=== PATIENT | female | born 2000 | race Hispanic/Latino ===

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

== ENCOUNTER 2023-12-29 08:00 | Emergency (ER) | payer OTHER ==
--- OUTSIDE RECORDS SUMMARY | 2023-12-29 08:03 | XMS REPORT | Continuity of Care Document ---
Author Name Unknown Address [address] [place] [address] [facility] Address [address] [place] [address] Care Team Providers Care Supply Assistant Name Role Phone PCP, PATIENT DOES NOT HAVE A Primary Care Physic hebert Harper Attending Clinician Kimberly Jacobsen MD Attending Clinician Unknown, Attending Attending Clinician KIMBERLY Park Attending Clinician Unavailable Doctor Unassigned, [place] Attending Clinician U navailable Meredith Admitting Clinician Vinnie vickers Payers Payer Name Policy Type Policy Number Effective Date Expirati on Date Source [facility] [id number] Problems Condition Name Condition Details Condition Category Status Onset Date Resolution Date Last Treatment Date Treating Clinician Comments Source No known active problems No known active problems Disease [facility] Allergies, Adverse Reactions, Alerts Allergy Name Allergy Type Status Severity Reaction(s) Onset Date Inactive Date Treating Clinician Comments Source NO KNOWN ALLERGIE S Drug Class Active [facility] Social History Social Habit Start Date Stop Date Quantity Comments Source Exposure to SARS-CoV-2 (event) 2022-05-25 00:00:00 2022-06-04 18:06:00 Not sure [facility] Sex Assigned At 2000 00:00:00 2000 00:00:00 [facility] Smoking Status Start Date Stop Date Source Tobacco smoking consumption unknown [facility] Medications Ordered Medication Name Filled Medication Name Start Date Stop Date Current Medication? Ordering Clinician Indication Dosage Frequency Signature (SIG) Comments Components Source bromphenira mine-pseudo ephedrine-D M (BROMFED DM) 2-30-10 mg/5 mL syrup 2021-06 00:00: 00 Yes [id number] 5mL Take 5 mL by mouth 4 (four) times daily as needed for Congestion /Allergies . [facility] Vital Signs Vital Name Observation Time Observation Value Comments S deborah Systolic blood pressure 2022-06-05 00:09:00 125 mm[Hg] [facility] Diastolic blood pressure 2022-06-05 00:09:00 81 mm[Hg] [facility] Heart rate 2022-06-05 00:09:00 82 /min [facility] Body temperature 2022-06-05 00:09:00 36.61 Trista [facility] Respiratory rate 2022-06-05 00:09:00 20 /min [facility] Body height 2022-06-05 00:09:00 157.5 cm [facility] Body weight 2022-06-05 00:09:00 88.179 kg [facility] BMI 2022-06-05 00:09:00 35.56 kg/m2 [facility] Oxygen saturation in Arterial blood by Pulse oximetry 2022-06-05 00:09:00 100 /min [facility] Procedures Procedure Date / Time Performed Performing Clinicia n Source POCT MOLECULAR STREP 2022-06-05 00:17:00 Unknown, Atte radha [facility] POCT SARS-COV-2 ANTIGEN (BINAX NOW) 2022-06-05 00:17:00 Kimberly Smith [facility] CONSENT/REFUSAL FOR DIAGNOSIS AND TREATMENT 2022-06-04 23:58:20 Doctor Unassigned, [place] [facility] Encounters Start Date/Time End Date/Time Encounter Type Admission Type Attending Clinicians Care Facility Care Department Encounter ID Source 2022-11-05 00:00:00 2022-11-05 00:00:00 Outpatient Samy Badillo AO AO [id number] [facility] 2022-11-03 00:00:00 2022-11-03 00:00:00 Outpatient Samy Badillo AO AO [id number] [facility] 2022-10-27 00:00:00 2022-10-27 00:00:00 Outpatient FOG_Phitrinidad _Sheldon AO AO [id number] [facility] 2022-10-27 00:00:00 2022-10-27 00:00:00 Outpatient FOG_Leo _Sheldon AO AO [id number] [facility] 2022-06-04 18:00:00 2022-06-04 18:38:00 Urgent Care Kimberly Smith Unknown, Attending [facility] [id number] [facility] 2022-06-04 18:00:00 2022-06-04 18:38:00 Outpatient R KIMBERLY SMITH [facility] [id number] [facility] 2022-06-04 00:00:00 2022-06-04 00:00:00 Orders Only Doctor Unassigned, [place] [facility] [id number] [facility] Results Test Description Test Time Test Comments Results Result Co mments Source [facility] MOLECULAR [id number] 00:24:52* Test Item Value Reference Range Interpretation Comme nts POCT Molecular Strep (test c ode = 15010-9) Negative Negative Lab Interpretation (test cod e = 79752-4) Normal [facility] MOLECULAR [id number] 00:24:52* Test Item Value Reference Range Interpretation Comme nts POCT Molecular Strep (test c ode = 35585-1) Negative Negative Lab Interpretation (test cod e = 01274-1) Normal [facility] SARS-COV-2 ANTIGEN (BINAX NOW)2022-06-05 00:18:00* Test Item Value Reference Range Interpretation Comme nts POCT SARS-COV-2 ANTIGEN (test code = 31106-9) Positive Not Detected A On board controls acceptable with C Line (test code = 3574) Yes DELANEY (test code = DELANEY) accurate developme nt and interpretation of all internal controls Lab Interpretation (test code = 59160-2) Abnormal [facility] SARS-COV-2 ANTIGEN (BINAX NOW)2022-06-05 00:18:00* Test Item Value Reference Range Interpretation Comme nts POCT SARS-COV-2 ANTIGEN (test code = 50324-6) Positive Not Detected A On board controls acceptable with C Line (test code = 3574) Yes DELANEY (test code = DELANEY) accurate developme nt and interpretation of all internal controls Lab Interpretation (test code = 52837-6) Abnormal [facility] SARS-COV-2 ANTIGEN (BINAX NOW)2022-06-05 00:18:00* Test Item Value Reference Range Interpretation Comme nts POCT SARS-COV-2 ANTIGEN (test code = 78536-9) Positive Not Detected A On board controls acceptable with C Line (test code = 3574) Yes DELANEY (test code = DELANEY) accurate developme nt and interpretation of all internal controls Lab Interpretation (test code = 57210-2) Abnormal [facility]
[2023-12-29 08:32] LABS: Absolute Lymphocytes (CBC) 1.8 K/uL (0.7-4.9); Absolute Monocytes 0.4 K/uL (0.1-1.3); Absolute Neutrophil 6.1 K/uL (1.8-8.0); Basophils % 0.4 % (0-1.3); Eosinophils % 0.6 % (0-4.4); Hematocrit 38.9 % (36.0-45.0); Hemoglobin 12.9 g/dL (12.0-15.0); Lymphocytes % 21.9 % (15.3-44.8); MCHC 33.1 g/dL (32.0-36.0); MCV 93.6 fL (80-100); MPV 8.9 fL (7.6-11.3); Monocytes % 4.8 % (3.3-12.3); Neutrophils % 72.3 % (41.7-73.7); Platelets 341 thou/uL (152-406); RBC Red Blood Cell Count 4.15 M/uL (3.86-4.86); Red Cell Distribution Width 13.3 % (12.1-15.2)
--- NOTE | 2023-12-29 09:14 | RAD REPORT ---
EXAM DESCRIPTION: Eda Cooney (2 Views)12/29/2023 8:48 am CLINICAL HISTORY: Shortness of breath COMPARISON: None FINDINGS: The lungs appear clear of acute infiltrate. The heart is normal size IMPRESSION: No acute abnormalities displayed
--- NOTE | 2023-12-29 09:33 | EDPHYS ---
Physician Documentation [facility] Name: Enoc Calvert Age: 23 yrs Sex: Female : 2000 Arrival Date: 12/29/2023 Time: 08:00 Bed 14 Private MD: ED Physician Chandler Rosenberg HPI: 12/28 08:39 This 23 yrs old Female presents to ER via Ambulatory with complaints of ms3 Breathing Difficulty. 08:39 23-year-old female with no past medical history presents emergency department for ms3 shortness of breath Thursday. Patient denies pain. She denies any inciting factors. Patient states that shortness of breath is better while sleeping. She denies cough, congestion, fevers, chills.. Historical: - Allergies: 08:08 No Known Allergies; ap3 - Home Meds: 08:08 None [Active]; ap3 - PMHx: 08:08 None; ap3 - Immunization history:: Adult Immunizations up to date. - Infectious Disease History:: Denies. - Social history:: Smoking status: Reported history of juuling and/or vaping. ROS: 08:39 Constitutional: Negative for fever, and chills. Cardiovascular: Negative for chest ms3 pain, and palpitations. Abdomen/GI: Negative for abdominal pain, nausea, vomiting, diarrhea, and constipation, 08:39 Skin: Negative for injury, rash, and discoloration, 08:39 Respiratory: Positive for shortness of breath, Exam: 08:39 Constitutional: This is a well developed, well nourished patient who is awake, alert, ms3 and in no acute distress. Cardiovascular: Regular rate and rhythm with a normal S1 and S2. No gallops, murmurs, or rubs. Normal PMI, no JVD. No pulse deficits. Respiratory: Lungs have equal breath sounds bilaterally, clear to auscultation and percussion. No rales, rhonchi or wheezes noted. No increased work of breathing, no retractions or nasal flaring. Abdomen/GI: Soft, non-tender, with normal bowel sounds. No distension or tympany. No guarding or rebound. No evidence of tenderness throughout. Skin: Warm, dry with normal turgor. Normal color with no rashes, no lesions, and no evidence of cellulitis. MS/ Extremity: Pulses equal, no cyanosis. Neurovascular intact. Full, normal range of motion. 08:39 ECG was reviewed by the Attending Physician. ms3 Vital Signs: 08:00 BP 110 / 72; Pulse 60; Resp 16; Pulse Ox 100% ; db 08:07 BP 122 / 81; Pulse 86; Resp 18; Temp 98.1; Pulse Ox 100% ; Weight 83.01 kg; Height 5 ap3 ft. 2 in. ; 10:15 BP 109 / 81; Pulse 68; Resp 16; Pulse Ox 100% ; bp 08:07 Body Mass Index 33.47 (83.01 kg, 157.48 cm) ap3 MDM: 08:05 Patient medically screened. ms3 08:39 Differential diagnosis: Anemia pneumonia, reactive airway disease. ms3 09:33 Data reviewed: vital signs, nurses notes, lab test result(s), radiologic studies, plain ms3 films, and as a result, I will discharge patient. Independent interpretation of the following test(s) in the Emergency Department X-Ray: My interpretation is CXR image reviewed by me does not reveal PNA or PTX. Counseling: I had a detailed discussion with the patient and/or guardian regarding the historical points, exam findings, and any diagnostic results supporting the discharge/admit diagnosis, lab results, radiology results, the need for outpatient follow up, to return to the emergency department if symptoms worsen or persist or if there are any questions or concerns that arise at home. Special discussion: I discussed with the patient/guardian in detail that at this point there is no indication for admission to the hospital. It is understood, however, that if the symptoms persist or worsen the patient needs to return immediately for re-evaluation. ED course: Discussed labs and imaging with patient. Heart rate 66, oxygen saturation 100% on reevaluation. Patient speaking full sentences, alert and orient x 4, no apparent distress, nontoxic-appearing. Patient to follow-up with her primary care physician in 2 to 3 days for reevaluation. Patient understands and agrees with plan. All questions were answered.. 12/28 08:06 Order name: CBC with Diff; Complete Time: 08:39 ms3 12/28 08:06 Order name: Chest Pa And Lat (2 Views) XRAY; Complete Time: 09:17 ms3 12/28 08:06 Order name: EKG - Nurse/Tech; Complete Time: 08:28 ms3 EC:39 Rate is 65 beats/min. Rhythm is regular. QRS [place] is Normal. NM interval is normal. QRS ms3 interval is normal. Clinical impression: Normal ECG. Interpreted by me. Reviewed by me. Administered Medications: No medications were administered Disposition Summary: 12/29/23 09:33 Discharge Ordered Notes: Location: Home ms3 Condition: Stable ms3 Diagnosis - Shortness of breath ms3 Followup: ms3 - With: Private Physician - When: 2 - 3 days - Reason: Recheck today's complaints Discharge Instructions: - Discharge Summary Sheet ms3 - Shortness of Breath, Adult ms3 Forms: - Medication Reconciliation Form ms3 - Antibiotic Education ms3 - Prescription Opioid Use ms3 - Patient Portal Instructions ms3 - Leadership Thank You Letter ms3 Signatures: Dispatcher [employer] Sabina Crews, RN RN ap3 Chandler Rosenberg DO DO ms3 Corrections: (The following items were deleted from the chart) 08:07 08:07 Chest Pa And Lat (2 Views)+RAD.[email or web address].BRZ ordered. EDMS EDMS
--- NOTE | 2023-12-29 09:33 | ER ---
Nurse's Notes [facility] Name: Enoc Calvert Age: 23 yrs Sex: Female : 2000 Arrival Date: 12/29/2023 Time: 08:00 Bed 14 Private MD: Diagnosis: Shortness of breath Presentation: 12/28 08:07 Chief complaint: Patient states: she has felt like she has had a hard time getting a ap3 good breath since Monday December 25, 2023. Coronavirus screen: At this time, the client does not indicate any symptoms associated with coronavirus-19. Ebola Screen: No symptoms or risks identified at this time. Initial Sepsis Screen: Does the patient meet any 2 criteria? No. Patient's initial sepsis screen is negative. Does the patient have a suspected source of infection? No. Patient's initial sepsis screen is negative. Risk Assessment: Do you want to hurt yourself or someone else? Patient reports no desire to harm self or others. Onset of symptoms was December 25, 2023. 08:07 Method Of Arrival: Ambulatory ap3 08:07 Acuity: MARI 3 ap3 Triage Assessment: 08:09 General: Appears in no apparent distress. Behavior is calm, cooperative, appropriate ap3 for age. Pain: Denies pain. Neuro: Level of Consciousness is awake, alert, obeys commands, Oriented to person, place, time, situation. Cardiovascular: Patient's skin is warm and dry. Respiratory: Reports shortness of breath Onset: The symptoms/episode began/occurred since December 25, 2023, the patient has mild shortness of breath. Historical: - Allergies: 08:08 No Known Allergies; ap3 - Home Meds: 08:08 None [Active]; ap3 - PMHx: 08:08 None; ap3 - Immunization history:: Adult Immunizations up to date. - Infectious Disease History:: Denies. - Social history:: Smoking status: Reported history of juuling and/or vaping. Screenin:10 [facility] ED Fall Risk Assessment (Adult) History of falling in the last 3 months, ap3 including since admission No falls in past 3 months (0 pts) Confusion or Disorientation No (0 pts) Intoxicated or Sedated No (0 pts) Impaired Gait No (0 pts) Mobility Assist Device Used No (0 pt) Altered Elimination No (0 pt) Score/Fall Risk Level 0 - 2 = Low Risk Oriented to surroundings, Maintained a safe environment, Educated pt \T\ family on fall prevention, incl call for assistance when getting out of bed, Assessed \T\ reinforced patient's understanding of fall precautions, Provided non-skid footwear, Hourly rounding (assess needs \T\ fall precautionary measures) done, Used ambulatory aids as needed (educated on \T\ assisted with), Used gait belt as appropriate. Abuse screen: Denies threats or abuse. Nutritional screening: No deficits noted. Tuberculosis screening: No symptoms or risk factors identified. Assessment: 08:10 Respiratory: Airway is patent Respiratory effort is even, unlabored. ap3 08:32 Reassessment: Patient appears in no apparent distress at this time. Patient and/or db family updated on plan of care and expected duration. Pain level reassessed. Patient is alert, oriented x 3, equal unlabored respirations, skin warm/dry/pink. General: Appears in no apparent distress. comfortable, Behavior is calm, cooperative. Pain: Denies pain. Neuro: Level of Consciousness is awake, alert, obeys commands, Oriented to person, place, time, situation. Cardiovascular: No deficits noted. Rhythm is sinus rhythm. Respiratory: Airway is patent Respiratory effort is even, unlabored, Respiratory pattern is regular, symmetrical, Breath sounds are clear bilaterally. GI: No deficits noted. No signs and/or symptoms were reported involving the gastrointestinal system. : No deficits noted. No signs and/or symptoms were reported regarding the genitourinary system. EENT: No deficits noted. No signs and/or symptoms were reported regarding the EENT system. Derm: No deficits noted. No signs and/or symptoms reported regarding the dermatologic system. Musculoskeletal: No deficits noted. No signs and/or symptoms reported regarding the musculoskeletal system. Vital Signs: 08:00 BP 110 / 72; Pulse 60; Resp 16; Pulse Ox 100% ; db 08:07 BP 122 / 81; Pulse 86; Resp 18; Temp 98.1; Pulse Ox 100% ; Weight 83.01 kg; Height 5 ap3 ft. 2 in. ; 10:15 BP 109 / 81; Pulse 68; Resp 16; Pulse Ox 100% ; bp 08:07 Body Mass Index 33.47 (83.01 kg, 157.48 cm) ap3 ED Course: 08:01 Patient arrived in ED. mr 08:02 Chandler Rosenberg DO is Attending Physician. ms3 08:06 Earlene Melvin, RN is Primary Nurse. db 08:08 Triage completed. ap3 08:10 Arm band placed on right wrist. ap3 08:24 Initial lab(s) drawn, by me, sent to lab. EKG done, by ED staff, reviewed by Chandler Rosenberg DO. Inserted saline lock: 22 gauge in left antecubital area, using aseptic technique. Blood collected. Flushed with 10 mL NS. 08:33 Patient has correct armband on for positive identification. Bed in low position. Call db light in reach. Side rails up X 1. Pulse ox on. NIBP on. Warm blanket given. Pillow given. 08:50 Chest Pa And Lat (2 Views) XRAY In Process Unspecified. EDMS 08:51 Primary Nurse role handed off by Earlene Melvin, RN bp 08:51 Shaun Farmer, RN is Primary Nurse. bp 10:15 No provider procedures requiring assistance completed. IV discontinued, intact, bp bleeding controlled, No redness/swelling at site. Pressure dressing applied. Administered Medications: No medications were administered Outcome: 09:33 Discharge ordered by MD. ms3 10:15 Discharged to home ambulatory, with family, bp 10:15 Condition: stable 10:15 Discharge instructions given to patient, family, Instructed on discharge instructions, follow up and referral plans. Demonstrated understanding of instructions, follow-up care, 10:16 Patient left the ED. bp Signatures: Dispatcher [employer] [facility] Candie Blanchard, Reg Reg mr Shaun Farmer, RN RN bp Sabina Evangelista RN RN ap3 Chandler Rosenberg DO DO ms3 Earlene Melvin, RN АНДРЕЙ ansari Corrections: (The following items were deleted from the chart) 08:32 08:28 No provider procedures requiring assistance completed. db db
--- NOTE | 2023-12-31 13:24 | EKG ---
Test Date: 2023-12-29 Test Time: 08:21:27 [employer]: LENA MEASUREMENT RESULTS: Intervals: Rate: 65 VT: 130 QRSD: 82 QT: 374 QTc: 388 [place]: P: 42 VT: 130 QRS: 64 T: 36 INTERPRETIVE STATEMENTS: Normal sinus rhythm with sinus arrhythmia Normal ECG No previous ECG available for comparison Electronically Signed On 12-31-23 13:16:19 CDT by Teodoro Casanova
[2023-12-31 16:52] VITALS: BP 109/81; TEMP 98.1; O2SAT 100
== END 2023-12-29 10:16 | disposition home or self-care (01) ==
LOC: ER 08:00
DX: R06.02 Shortness of breath (principal); F17.290 Nicotine dependence, other tobacco product, uncomplicated
CPT/HCPCS: 36415; 71046; 85025; 93005; 99284